=== PATIENT | female | born 1960 | race Caucasian/White ===

== ENCOUNTER 2022-07-07 11:33 | Emergency (ER) | payer MEDICAID ==
[~2022-07-07] VITALS: Ht 149.9 cm; Wt 47.2 kg
[2022-07-07] MEDS ORDERED: PRED20TA3 PO (12:56)
[2022-07-07] MEDS ORDERED: FAMO-136 PO (12:56)
[2022-07-07] MEDS ORDERED: CETI1SOL17 PO (12:56)
[2022-07-07] MEDS ORDERED: SOLU-MEDROL 125MG VIAL IM ONE (13:00)
[2022-07-07] MEDS ORDERED: FAMOTIDINE 20MG TAB PO ONE (13:00)
[2022-07-07] MEDS ORDERED: HYDROXYZINE 25 MG TABLET PO ONE (13:00)
[2022-07-07 13:02] VITALS: BP 126/68
== END 2022-07-07 13:07 | disposition home or self-care (01) ==
LOC: EDH 11:33
DX: L50.9 Urticaria, unspecified (principal); F41.9 Anxiety disorder, unspecified; F32.A Depression, unspecified; G47.30 Sleep apnea, unspecified; Z88.0 Allergy status to penicillin; Z88.2 Allergy status to sulfonamides; Z88.1 Allergy status to other antibiotic agents; Z79.899 Other long term (current) drug therapy; Z98.890 Other specified postprocedural states
CPT/HCPCS: 99283; 96372; J2930

== ENCOUNTER 2023-12-10 23:49 | Inpatient (IN) | payer MEDICAID ==
[~2023-12-10] VITALS: Ht 149.9 cm; Wt 43.2 kg
[~2023-12-10 23:49] MED LIST: CETI1SOL17 PO; FAMO-136 PO; PRED20TA3 PO
[2023-12-11 00:23] LABS: APPEARANCE,URINE CLEAR (CLEAR); BILIRUBIN,URINE NEGATIVE (NEGATIVE); COLOR,URINE YELLOW (YELLOW); GLUCOSE, URINE (UA) NEGATIVE (NEGATIVE); KETONES,URINE NEGATIVE (NEGATIVE); LEUKOCYTE ESTERASE ,URINE NEGATIVE Leu/uL (NEGATIVE); NITRATE,URINE NEGATIVE (NEGATIVE); PROTEIN,URINE 20 mg/dL (NEGATIVE); UROBILINOGEN,URINE 0.2 mg/dL (0.2-1.0)
[2023-12-11 00:28] LABS: ADD UA MICROSCOPIC YES
[2023-12-11 00:32] LABS: MUCUS,URINE RARE LPF (None Seen); RBC,URINE 0-1 /HPF (0-1); SQUAMOUS EPITHELIAL CELL,UR RARE /HPF (0-2); WBC,URINE 0-1 /HPF (0-1)
[2023-12-11 00:41] LABS: CREATININE 0.8 mg/dL (0.5-1.5); POTASSIUM 3.7 mmol/L (3.5-5.1)
[2023-12-11 00:52] LABS: ALBUMIN 3.9 g/dL (3.5-5.0); BILIRUBIN,TOTAL 0.7 mg/dL (0.2-1.0); TOTAL PROTEIN, SERUM 8.1 g/dL (6.0-8.3)
[2023-12-11 00:54] LABS: BASOPHILS # (AUTO) 0.02 K/uL (0.00-0.20); BASOPHILS % (AUTO) 0.5 % (0.0-5.0); EOSINOPHILS # (AUTO) 0.04 K/uL (0.00-0.70); IMMATURE GRANULOCYTE ABSOLUTE 0.02 K/uL (0-1); LYMPHOCYTES # (AUTO) 1.3 K/uL (1.0-4.8); LYMPHOCYTES % (AUTO) 33.1 % (21.0-51.0); MEAN CORPUSCULAR HEMOGLOBIN 30.3 pg (27.0-33.0); MEAN CORPUSCULAR HGB CONC 33.2 g/dL (32.0-36.0); MEAN CORPUSCULAR VOLUME 91.2 fL (79-99); MONOCYTES # (AUTO) 0.4 K/uL (0.1-1.0); NEUTROPHILS # (AUTO) 2.1 K/uL (1.8-7.7); NEUTROPHILS % (AUTO) 54.9 % (40.0-77.0); PLATELET COUNT (AUTO) 101 K/uL (130-400); RED BLOOD CELL COUNT(AUTO) 3.73 MIL/uL (4.00-5.50); RED CELL DISTRIBUTION WIDTH 14.4 % (11.0-15.5); WHITE BLOOD COUNT (AUTO) 3.9 K/uL (4.8-10.8)
[2023-12-11] MEDS ORDERED: IOHEXOL 350 MG/ML 100ML INFUS..BTL IV ONE (02:29)
[2023-12-11] MEDS ORDERED: 0.9%NACL 1000ML 1,000 ML IV ONE (02:30)
[2023-12-11 03:06] LABS: ALCOHOL, BLOOD 384 mg/dL (0-10); AMYLASE 124 U/L (25-115); CREATINE KINASE, TOTAL 189 U/L (21-232)
[2023-12-11] MEDS ORDERED: MORPHINE 2 MG SYG IV PRN (04:30)
[2023-12-11] MEDS ORDERED: PHARMACY COMMUNICATION MISC PRN (04:30)
[2023-12-11] MEDS ORDERED: POTASSIUM CHLORIDE 10% ELIXIR 20 MEQ/15 ML UDCUP PO PRN (04:30)
[2023-12-11] MEDS: COMPOUND IV MISC 1 EACH IVSOLN MISC SCH (04:30)
[2023-12-11] MEDS ORDERED: POTASSIUM CHLORIDE 20MEQ/100ML 100 ML IV PRN (04:30)
[2023-12-11] MEDS ORDERED: MAGNESIUM 2GM PREMIX 50ML 50 ML IV PRN (04:30)
[2023-12-11] MEDS ORDERED: ONDANSETRON 4MG INJ IV PRN (04:30)
[2023-12-11] MEDS ORDERED: MORPHINE 4 MG SYG IV PRN (04:30)
[2023-12-11] MEDS ORDERED: ACETAMINOPHEN 325 MG TAB PO PRN ×2 (04:30)
[2023-12-11] MEDS ORDERED: THIAMINE HCL 100 MG/ML 2ML VIAL ONE (04:54)
[2023-12-11] MEDS ORDERED: FOLIC ACID 5 MG/ML VIAL ONE (04:56)
[2023-12-11] MEDS: CHLORDIAZEPOXIDE HCL 25 MG CAP PO SCH ×3 (05:00→20:34)
[2023-12-11] MEDS: KCL 20 MEQ ERTAB PO PRN (05:00)
[2023-12-11] MEDS: THIAMINE HCL 100 MG, FOLIC ACID 1 MG, M.V.I. IV [ADULT] 10 ML in 0.9%NACL 1000ML 1,000 ML IV SCH ×2 (05:00→20:34)
[2023-12-11] MEDS: ENOXAPARIN SODIUM 40 MG/0.4 ML SYRINGE SQ SCH (10:15)
[2023-12-11] MEDS: FAMOTIDINE 20MG VIAL IV SCH ×2 (10:15→20:34)
[2023-12-11 19:39] VITALS: BP 128/76; PULSE 95; RESP 20
[2023-12-11 20:00] VITALS: O2SAT 98
[2023-12-11] MEDS: LORAZEPAM 2 MG/ML 1 ML VIAL IVP PRN (20:44)
[2023-12-11 23:38] VITALS: BP 112/69; PULSE 90; RESP 20
[2023-12-12] VITALS (7 sets, daily range): BP systolic 125–145; BP diastolic 60–88; PULSE 85–103; RESP 16–20; O2SAT 96–98
[2023-12-12] MEDS: COMPOUND IV MISC 1 EACH IVSOLN MISC SCH ×2 (04:30→16:34)
[2023-12-12] MEDS: CHLORDIAZEPOXIDE HCL 25 MG CAP PO SCH ×3 (05:05→20:27)
[2023-12-12 05:09] LABS: BASOPHILS # (AUTO) 0.01 K/uL (0.00-0.20); BASOPHILS % (AUTO) 0.3 % (0.0-5.0); EOSINOPHILS # (AUTO) 0.08 K/uL (0.00-0.70); EOSINOPHILS % (AUTO) 2.3 % (0.0-8.0); HEMATOCRIT 31.3 % (36-48); IMMATURE GRANULOCYTE ABSOLUTE 0.01 K/uL (0-1); LYMPHOCYTES # (AUTO) 0.6 K/uL (1.0-4.8); LYMPHOCYTES % (AUTO) 18.6 % (21.0-51.0); MEAN CORPUSCULAR HEMOGLOBIN 30.5 pg (27.0-33.0); MEAN CORPUSCULAR HGB CONC 32.9 g/dL (32.0-36.0); MEAN CORPUSCULAR VOLUME 92.6 fL (79-99); MONOCYTES # (AUTO) 0.5 K/uL (0.1-1.0); MONOCYTES % (AUTO) 15.1 % (3.0-13.0); NEUTROPHILS # (AUTO) 2.2 K/uL (1.8-7.7); NEUTROPHILS % (AUTO) 63.4 % (40.0-77.0); PLATELET COUNT (AUTO) 82 K/uL (130-400); RED BLOOD CELL COUNT(AUTO) 3.38 MIL/uL (4.00-5.50); RED CELL DISTRIBUTION WIDTH 13.4 % (11.0-15.5); WHITE BLOOD COUNT (AUTO) 3.5 K/uL (4.8-10.8)
[2023-12-12 05:18] LABS: BILIRUBIN,TOTAL 1.2 mg/dL (0.2-1.0); CREATININE 0.6 mg/dL (0.5-1.5); MAGNESIUM 1.5 mg/dL (1.80-2.40); PHOSPHORUS 2.2 mg/dL (2.5-4.9); POTASSIUM 3.9 mmol/L (3.5-5.1); TOTAL PROTEIN, SERUM 6.3 g/dL (6.0-8.3)
[2023-12-12] MEDS: LORAZEPAM 2 MG/ML 1 ML VIAL IVP PRN ×2 (07:47→22:37)
[2023-12-12] MEDS: ENOXAPARIN SODIUM 40 MG/0.4 ML SYRINGE SQ SCH (07:50)
[2023-12-12] MEDS: THIAMINE HCL 100 MG, FOLIC ACID 1 MG, M.V.I. IV [ADULT] 10 ML in 0.9%NACL 1000ML 1,000 ML IV SCH (07:50)
[2023-12-12] MEDS: FAMOTIDINE 20MG VIAL IV SCH ×2 (07:51→20:27)
[2023-12-12] MEDS ORDERED: POTASSIUM CHLORIDE 20MEQ/100ML 100 ML IV PRN (13:30)
[2023-12-12] MEDS ORDERED: CHLORDIAZEPOXIDE HCL 25 MG CAP PO PRN (13:30)
[2023-12-12] MEDS ORDERED: KCL 20 MEQ ERTAB PO PRN (13:30)
[2023-12-12] MEDS ORDERED: POTASSIUM CHLORIDE 10% ELIXIR 20 MEQ/15 ML UDCUP PO PRN (13:30)
[2023-12-12] MEDS ORDERED: PHARMACY COMMUNICATION MISC PRN (13:30)
[2023-12-12] MEDS ORDERED: LORAZEPAM 2 MG/ML 1 ML VIAL IVP PRN (13:30)
[2023-12-12] MEDS ORDERED: MAGNESIUM 2GM PREMIX 50ML 50 ML IV PRN (13:30)
[2023-12-13] VITALS (7 sets, daily range): BP systolic 96–118; BP diastolic 61–72; PULSE 64–101; RESP 16–18; O2SAT 97–98
[2023-12-13] MEDS: CHLORDIAZEPOXIDE HCL 25 MG CAP PO SCH ×3 (04:20→15:23)
[2023-12-13 05:10] LABS: BASOPHILS # (AUTO) 0.01 K/uL (0.00-0.20); BASOPHILS % (AUTO) 0.3 % (0.0-5.0); EOSINOPHILS # (AUTO) 0.08 K/uL (0.00-0.70); EOSINOPHILS % (AUTO) 2.5 % (0.0-8.0); IMMATURE GRANULOCYTE ABSOLUTE 0.02 K/uL (0-1); LYMPHOCYTES % (AUTO) 30.1 % (21.0-51.0); MEAN CORPUSCULAR HEMOGLOBIN 30.1 pg (27.0-33.0); MEAN CORPUSCULAR HGB CONC 32.4 g/dL (32.0-36.0); MONOCYTES # (AUTO) 0.3 K/uL (0.1-1.0); MONOCYTES % (AUTO) 10.4 % (3.0-13.0); NEUTROPHILS # (AUTO) 1.8 K/uL (1.8-7.7); NEUTROPHILS % (AUTO) 56.1 % (40.0-77.0); PLATELET COUNT (AUTO) 88 K/uL (130-400); RED BLOOD CELL COUNT(AUTO) 3.55 MIL/uL (4.00-5.50); RED CELL DISTRIBUTION WIDTH 13.4 % (11.0-15.5); WHITE BLOOD COUNT (AUTO) 3.3 K/uL (4.8-10.8)
[2023-12-13 05:24] LABS: ALANINE AMINOTRANSFERASE 45 U/L (12-78); ALBUMIN 3.3 g/dL (3.5-5.0); ALCOHOL, BLOOD < 3 mg/dL (0-10); ASPARTATE AMINOTRANSFERASE 56 U/L (10-37); BILIRUBIN,TOTAL 0.9 mg/dL (0.2-1.0); CARBON DIOXIDE 31 mmol/L (21-32); CHLORIDE 99 mmol/L (101-111); CREATININE 0.7 mg/dL (0.5-1.5); GLOMERULAR FILTR. RATE CALC 97 mL/min (>90); GLUCOSE,RANDOM 110 mg/dL (70-105); POTASSIUM 3.2 mmol/L (3.5-5.1); SODIUM SERUM 138 mmol/L (136-145); TOTAL PROTEIN, SERUM 6.9 g/dL (6.0-8.3); UREA NITROGEN, BLOOD 8 mg/dL (7-18)
[2023-12-13] MEDS: KCL 20 MEQ ERTAB PO PRN ×3 (05:52→13:18)
[2023-12-13] MEDS: THIAMINE HCL 100 MG, FOLIC ACID 1 MG, M.V.I. IV [ADULT] 10 ML in 0.9%NACL 1000ML 1,000 ML IV SCH (07:37)
[2023-12-13] MEDS: FAMOTIDINE 20MG VIAL IV SCH ×2 (09:10→22:09)
[2023-12-13] MEDS: ENOXAPARIN SODIUM 40 MG/0.4 ML SYRINGE SQ SCH (09:11)
[2023-12-14 03:51] VITALS: BP 111/72; PULSE 88; RESP 16
[2023-12-14] MEDS: CHLORDIAZEPOXIDE HCL 25 MG CAP PO SCH ×2 (04:43→10:07)
[2023-12-14 07:07] LABS: BASOPHILS # (AUTO) 0.01 K/uL (0.00-0.20); BASOPHILS % (AUTO) 0.3 % (0.0-5.0); EOSINOPHILS # (AUTO) 0.08 K/uL (0.00-0.70); EOSINOPHILS % (AUTO) 2.6 % (0.0-8.0); HEMATOCRIT 27.1 % (36-48); IMMATURE GRANULOCYTE ABSOLUTE 0.01 K/uL (0-1); LYMPHOCYTES # (AUTO) 0.7 K/uL (1.0-4.8); LYMPHOCYTES % (AUTO) 21.2 % (21.0-51.0); MEAN CORPUSCULAR HEMOGLOBIN 30.9 pg (27.0-33.0); MEAN CORPUSCULAR HGB CONC 32.5 g/dL (32.0-36.0); MEAN CORPUSCULAR VOLUME 95.1 fL (79-99); MONOCYTES # (AUTO) 0.4 K/uL (0.1-1.0); MONOCYTES % (AUTO) 14.1 % (3.0-13.0); NEUTROPHILS # (AUTO) 1.9 K/uL (1.8-7.7); NEUTROPHILS % (AUTO) 61.5 % (40.0-77.0); PLATELET COUNT (AUTO) 70 K/uL (130-400); RED BLOOD CELL COUNT(AUTO) 2.85 MIL/uL (4.00-5.50); RED CELL DISTRIBUTION WIDTH 13.6 % (11.0-15.5); WHITE BLOOD COUNT (AUTO) 3.1 K/uL (4.8-10.8)
[2023-12-14 07:20] LABS: ALBUMIN 2.9 g/dL (3.5-5.0); BILIRUBIN,TOTAL 0.4 mg/dL (0.2-1.0); CREATININE 0.7 mg/dL (0.5-1.5); POTASSIUM 3.7 mmol/L (3.5-5.1); TOTAL PROTEIN, SERUM 5.9 g/dL (6.0-8.3)
[2023-12-14 08:00] VITALS: BP 98/61; PULSE 82; RESP 20; O2SAT 98
[2023-12-14] MEDS: ENOXAPARIN SODIUM 40 MG/0.4 ML SYRINGE SQ SCH (09:00)
[2023-12-14] MEDS ORDERED: FAMOTIDINE 20MG TAB PO SCH (09:00)
[2023-12-14] MEDS ORDERED: CHLO25CA6 PO (10:32)
[2023-12-14 12:05] VITALS: BP 106/66; PULSE 97; RESP 18
== END 2023-12-14 15:10 | disposition home or self-care (01) | DRG 282 ==
LOC: EDH 23:49 → EDHIP 23:50 → 3DH 12-11 17:28
PROVIDERS: ADMIT Internal Medicine; ATTEND Internal Medicine
DX: K85.90 Acute pancreatitis without necrosis or infection, unspecified (principal); F10.231 Alcohol dependence with withdrawal delirium; G92.8 Other toxic encephalopathy; E44.0 Moderate protein-calorie malnutrition; G31.2 Degeneration of nervous system due to alcohol; F10.229 Alcohol dependence with intoxication, unspecified; Y90.8 Blood alcohol level of 240 mg/100 ml or more; D64.9 Anemia, unspecified; E86.0 Dehydration; E83.39 Other disorders of phosphorus metabolism; E83.42 Hypomagnesemia; Z88.0 Allergy status to penicillin; F32.A Depression, unspecified; F41.9 Anxiety disorder, unspecified; G47.09 Other insomnia; Z88.8 Allergy status to other drugs, medicaments and biological substances; Z88.2 Allergy status to sulfonamides; Z56.0 Unemployment, unspecified; Z90.711 Acquired absence of uterus with remaining cervical stump; Z68.1 Body mass index [BMI] 19.9 or less, adult
CPT/HCPCS: 36415; 74177; 80053; 81001; 82150; 82550; 82948; 83690; 83735; 84100; 85025; G0378; J1650; J2060; J2270; J2405; J3411; J3475; J3490; J7030; Q9967

== ENCOUNTER 2024-03-10 19:14 | Emergency (ER) | payer MEDICAID ==
[~2024-03-10] VITALS: Ht 149.9 cm; Wt 40.8 kg
[2024-03-10] MEDS: KETOROLAC 30MG VIAL (30MG/ML) IVP ONE (19:54)
[2024-03-10 20:08] LABS: BASOPHILS # (AUTO) 0.02 K/uL (0.00-0.20); BASOPHILS % (AUTO) 0.2 % (0.0-5.0); EOSINOPHILS # (AUTO) 0.04 K/uL (0.00-0.70); EOSINOPHILS % (AUTO) 0.4 % (0.0-8.0); HEMATOCRIT 30.3 % (36-48); IMMATURE GRANULOCYTE ABSOLUTE 0.03 K/uL (0-1); LYMPHOCYTES # (AUTO) 1.4 K/uL (1.0-4.8); LYMPHOCYTES % (AUTO) 14.9 % (21.0-51.0); MEAN CORPUSCULAR HEMOGLOBIN 29.3 pg (27.0-33.0); MEAN CORPUSCULAR VOLUME 88.9 fL (79-99); MONOCYTES # (AUTO) 0.5 K/uL (0.1-1.0); MONOCYTES % (AUTO) 5.6 % (3.0-13.0); NEUTROPHILS # (AUTO) 7.3 K/uL (1.8-7.7); NEUTROPHILS % (AUTO) 78.6 % (40.0-77.0); PLATELET COUNT (AUTO) 159 K/uL (130-400); RED BLOOD CELL COUNT(AUTO) 3.41 MIL/uL (4.00-5.50); RED CELL DISTRIBUTION WIDTH 12.8 % (11.0-15.5); WHITE BLOOD COUNT (AUTO) 9.3 K/uL (4.8-10.8)
[2024-03-10 20:20] LABS: ALBUMIN 3.8 g/dL (3.5-5.0); BILIRUBIN,TOTAL 0.5 mg/dL (0.2-1.0); CREATININE 0.8 mg/dL (0.5-1.0); POTASSIUM 3.1 mmol/L (3.5-5.1); TOTAL PROTEIN, SERUM 6.9 g/dL (6.0-8.3)
[2024-03-10 21:14] VITALS: BP 9/62; PULSE 88; RESP 16; O2SAT 100
== END 2024-03-10 21:19 | disposition home or self-care (01) ==
LOC: EDH 19:14
DX: S90.32XA Contusion of left foot, initial encounter (principal); S20.219A Contusion of unspecified front wall of thorax, initial encounter; S90.02XA Contusion of left ankle, initial encounter; F10.129 Alcohol abuse with intoxication, unspecified; F41.9 Anxiety disorder, unspecified; F32.A Depression, unspecified; G47.00 Insomnia, unspecified; Z88.0 Allergy status to penicillin; Z88.2 Allergy status to sulfonamides; Z88.8 Allergy status to other drugs, medicaments and biological substances; Z90.710 Acquired absence of both cervix and uterus; Y08.89XA Assault by other specified means, initial encounter; Y93.89 Activity, other specified; Y92.89 Other specified places as the place of occurrence of the external cause; Y99.8 Other external cause status; Y90.8 Blood alcohol level of 240 mg/100 ml or more
CPT/HCPCS: 99285; 96374; 71045; 84484; 80053; 85025; 36415; 73610; 73630; 93005; J1885

== ENCOUNTER 2024-08-20 23:06 | Emergency (ER) | payer MEDICAID ==
[~2024-08-20] VITALS: Ht 149.9 cm; Wt 39.9 kg
[2024-08-20 23:17] VITALS: BP 131/77; PULSE 83; RESP 16; TEMP 97.6; O2SAT 98
== END 2024-08-20 23:55 | disposition home or self-care (01) ==
LOC: EDH 23:06
DX: S01.91XA Laceration without foreign body of unspecified part of head, initial encounter (principal); F41.9 Anxiety disorder, unspecified; F32.A Depression, unspecified; Z88.0 Allergy status to penicillin; Z88.1 Allergy status to other antibiotic agents; Z88.2 Allergy status to sulfonamides; Z90.710 Acquired absence of both cervix and uterus; W18.39XA Other fall on same level, initial encounter; Y93.89 Activity, other specified; Y92.89 Other specified places as the place of occurrence of the external cause; Y99.8 Other external cause status
CPT/HCPCS: 12002; 70450